=== PATIENT | female | born 1945 | race Caucasian/White ===

== ENCOUNTER 2020-03-05 16:23 | Emergency (ER) | payer MEDICARE, SELFPAY ==
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
[2020-03-05 17:00] VITALS: BP 156/78; PULSE 70; RESP 16; TEMP 36.7; O2SAT 96; BMI 23.3
--- NOTE | 2020-03-05 19:38 | PC.NURSE ---
Security at bedside for changeover. Pt refusing to change into a hospital gown, pt also refusing labs/UA. Pt states I'm going, I'm not staying here! MD aware that pt is attempting to leave. Per MD to call family for more information.
[2020-03-05 19:40] VITALS: BP 169/52; PULSE 70; RESP 18; TEMP 36.4; O2SAT 92
--- NOTE | 2020-03-05 19:42 | PC.NURSE ---
Pt agreeable to this RN contacting her close friend Cathi to obtain more information about current medical condition. Cathi [phone] not answering phone at this time.
--- NOTE | 2020-03-05 19:47 | PC.NURSE ---
This RN attempting to call brother Josh per pt request [phone]. Josh also not answering phone. This RN left a message.
--- NOTE | 2020-03-05 20:52 | PC.NURSE ---
This RN explaining the plan of care to pt and plan for [facility] consult. Pt agreeable to labs, urine and Covid swab at this time. Pt ambulating to the bathroom with a steady gait. All labs obtained and sent. Continue to monitor.
[2020-03-05 20:53] LABS: MANUAL DIFF FLAG NO
[2020-03-05 20:54] LABS: Basophils Absolute Auto 0.1 X10*3/uL (0.0-0.2); Basophils Percent Auto 0.9 % (0-2); Eosinophils Absolute Auto 0.2 X10*3/uL (0.0-0.4); Eosinophils Percent Auto 1.9 % (0-4); Hematocrit 35.4 % (37-47); Hemoglobin 11.5 g/dl (12.0-16.0); Imm Gran Abs Auto 0.05 X10*3/uL (0.00-0.03); Imm Gran Pct Auto 0.6 % (0.0-0.4); Lymphocytes Absolute Auto 2.1 X10*3/uL (1.2-4.9); Lymphocytes Percent Auto 25.5 % (20-40); Mean Corpuscular HGB Conc 32.5 g/dl (31.0-35.0); Mean Corpuscular Hemoglobin 29.6 pg (27.0-33.0); Mean Platelet Volume 8.5 fL (9.4-12.3); Monocytes Absolute Auto 0.7 X10*3/uL (0.1-1.2); Monocytes Percent Auto 8.2 % (2-11); Neutrophils Absolute Auto 5.1 X10*3/uL (2.0-8.3); Neutrophils Percent Auto 62.9 % (45-73); Platelet Count 296 X10*3/uL (160-400); Red Blood Count 3.89 X10*6/uL (4.20-5.50); Red Cell Distribution Width 14.9 % (11.0-16.0); White Blood Count 8.1 X10*3/uL (4.8-10.8)
[2020-03-05 20:55] LABS: Appearance Urine CLEAR; Color Urine YELLOW; Glucose Urine UA NEG (NEG); Leukocyte Esterase Urine 1+ (NEG); Nitrite Urine NEG (NEG); PH 5.5 (5.0-8.0); Specific Gravity - Urine >= 1.030 (1.005-1.025); Urine Blood 2+ (NEG); Urine Ketones NEG (NEG); Urine Protein 1+ MG/DL (NEG-TRACE)
--- NOTE | 2020-03-05 21:00 | PC.NURSE ---
This RN speaking with carli, . Per niece, pt recently discharged from [facility] last Tuesday for a chronic UTI since the summer requiring IV ABX. Per niece, pt has been increasingly paranoid for 3 weeks. Pt is also undergoing changes to her psychiatric medication and has been having weekly visits with her psychiatrist. Carli explains that pts home medications are in a lock box and that she has a visiting nurse coming 2x/day to administer her medications. Plan per niece has been to begin Zyprexa and decrease Seroquel dose. MD reaves.
[2020-03-05 21:01] LABS: Bacteria Urine 1+ /LPF; Squamous Epithelial Cell Urine 1+ /LPF
[2020-03-05 21:21] VITALS: BP 179/65; PULSE 68; RESP 16; TEMP 37; O2SAT 99
[2020-03-05 21:23] LABS: Alanine Aminotransferase 17 U/L (0-31); Albumin Level 3.7 g/dL (3.5-5.0); Alkaline Phosphatase 85 U/L (39-117); Anion Gap 13 (12-20); Aspartate Amino Transferase 18 U/L (5-31); Bilirubin Total 0.3 mg/dL (0.0-1.0); Blood Urea Nitrogen 18 mg/dL (9-16); Carbon Dioxide 26 mmol/L (22-29); Chloride 104 mmol/L (96-108); Creatinine Clr Calc Pharmacy 39.2; Estimated Glomerular Filt Rate 46; Glucose Random 251 mg/dL (60-115); Potassium 4.6 mmol/l (3.3-5.1); Sodium 138 mmol/L (135-145); Total Protein 6.9 g/dL (6.5-8.0)
--- NOTE | 2020-03-05 21:30 | PC.NURSE ---
Addendum entered by Fausto Watts RN 03/05/20 23:51: Contacted with visiting nurse to verify current medication list. Med rec completed, and MD made aware. Pt is diabetic. POC 167. Pt changed over to hospital attire w/o difficulty. Faxed and called to [facility]. Awaiting for N primary consult. At this time, pt is sleeping well in her room. Calm and cooperative. NAD. Will continue to monitor. Original Note: Pt ambulated to POD with security. Steady gait on feet. Called Pt's Niece, Elizabeth to get medication.
--- NOTE | 2020-03-05 21:49 | PC.NURSE ---
Report given to NAPOLEON Lambert. Pt transferred to pod.
[2020-03-05 23:04] LABS: Glucose, Whole Blood 167 mg/dL (60-115)
[2020-03-05 23:17] VITALS: BP 171/59; PULSE 61; RESP 18; TEMP 36.4; O2SAT 93
[2020-03-05] MEDS: OLANZapine 5 MG TABLET PO (23:19)
[2020-03-05] MEDS: Gabapentin 400 MG CAPSULE PO (23:19)
[2020-03-05] MEDS: Mirtazapine 15 MG TABLET 45 MG PO (23:19)
[2020-03-05] MEDS: lamoTRIgine 100 MG TABLET 200 MG PO (23:19)
[2020-03-05] MEDS: QUEtiapine Fumarate 400 MG TABLET PO (23:19)
[2020-03-06] VITALS (7 sets, daily range): BP systolic 138–196; BP diastolic 44–100; PULSE 55–88; RESP 16–18; TEMP 36.1–36.7; O2SAT 95–97
--- NOTE | 2020-03-06 00:04 | PC.NURSE ---
Jose Joseph can be reached at [phone].
[2020-03-06 00:15] LABS: SARS COV2 PCR INHOUSE NEGATIVE (Negative)
--- NOTE | 2020-03-06 07:15 | PC.NURSE ---
RECEIVED REPORT FROM NAPOLEON GUILLEN. PT ALERT AND VERBAL. SKIN WPD. RESPIRATIONS EVEN AND NON LABORED. CALM AND COOPERATIVE. SITTING UP AT DESK, EATING BREAKFAST.
[2020-03-06 07:20] LABS: Glucose, Whole Blood 121 mg/dL (60-115)
[2020-03-06 07:35] LABS: Glucose, Whole Blood 121 mg/dL (60-115)
[2020-03-06] MEDS: Insulin Glargine,Hum.rec.anlog 100 UNIT/ML 10 ML VIAL 20 UNIT SUBCUT (09:27)
[2020-03-06] MEDS: Losartan Potassium 50 MG TABLET PO (09:28)
[2020-03-06] MEDS: amLODIPine Besylate 5 MG TABLET PO (09:28)
[2020-03-06] MEDS: lamoTRIgine 100 MG TABLET 200 MG PO ×2 (09:28→21:31)
[2020-03-06] MEDS: QUEtiapine Fumarate 50 MG TABLET PO (09:29)
[2020-03-06] MEDS: Aspirin Enteric Coated 81 MG TABLET.DR PO (09:29)
[2020-03-06] MEDS: Atorvastatin Calcium 10 MG TABLET PO (09:29)
[2020-03-06] MEDS: Gabapentin 400 MG CAPSULE PO ×2 (09:29→21:31)
[2020-03-06 14:22] LABS: Glucose, Whole Blood 218 mg/dL (60-115)
[2020-03-06] MEDS: Insulin Lispro 100 UNIT/ML 3 ML VIAL SUBCUT ×2 (14:33→21:42)
--- NOTE | 2020-03-06 15:54 | PC.NURSE ---
Report from Judi BENDER. Pt resting quietly at this time in bed, resp reg and even. In patient bedsearch at [facility] time.
--- NOTE | 2020-03-06 18:28 | PC.NURSE ---
Pt requesting her clothes, trying door handles, does not seem to comprehend the concept of bedsearch. This RN explained to pt she is at least here in the ED for tongight and will likely be re-evaluated in the morning. Pt seeming to accept this at this time. Currently sitting in chair in the [place]
--- NOTE | 2020-03-06 19:32 | XR_ITS ---
EXAMINATION: XR CHEST CLINICAL INFORMATION: Medical clearance COMPARISON: None TECHNIQUE: 2 views of the chest were obtained. FINDINGS: Linear scarring or linear atelectasis at the right lung base. There is no acute infiltrate. No pulmonary vascular congestion. There is no pleural effusion. The heart size is normal. The cardiac and mediastinal contours are normal. There are calcifications of the thoracic aorta. There are multilevel degenerative changes of dorsal spine. IMPRESSION: No acute abnormality of the chest.
--- NOTE | 2020-03-06 19:32 | ECG_ITS ---
Test Reason : PRE ADMIT Blood Pressure : / mmHG Vent. Rate : 060 BPM Atrial Rate : 060 BPM P-R Int : 196 ms QRS Dur : 096 ms QT Int : 438 ms P-R-T Axes : 065 061 068 degrees QTc Int : 438 ms Normal sinus rhythm Minimal voltage criteria for LVH, may be normal variant Borderline ECG No previous ECGs available Referred By: Constantino Finnegan Electronically Signed By:MARIYA DAVIS MD
--- NOTE | 2020-03-06 19:47 | PC.NURSE ---
N called notified [facility] is considering patient's admission required Chest X-ray, EKG, and Covid test done. Provider notified.
--- NOTE | 2020-03-06 19:59 | PC.NURSE ---
Patient refused chest X-ray but agreed after educating the importance of the X-ray. Patient in milieu watching TV. Will continue to monitor.
[2020-03-06 21:30] LABS: Glucose, Whole Blood 215 mg/dL (60-115)
[2020-03-06] MEDS: Mirtazapine 15 MG TABLET 45 MG PO (21:30)
[2020-03-06] MEDS: QUEtiapine Fumarate 400 MG TABLET PO (21:31)
[2020-03-06] MEDS: OLANZapine 5 MG TABLET PO (21:31)
--- NOTE | 2020-03-06 21:45 | PC.NURSE ---
Patient compliant with HS po medication. POC was 215 covered with 4 units of insulin as ordered. Will continue to monitor.
[2020-03-07] VITALS (7 sets, daily range): BP systolic 112–170; BP diastolic 49–62; PULSE 63–67; RESP 16–22; TEMP 36.4–36.6; O2SAT 93–97
--- NOTE | 2020-03-07 02:00 | PC.NURSE ---
Patient just went to bed, now appears sleeping, no distress observed/reported. Refused her EKG despite repeated attempt to educate and redirect but to no success. Updated referral handed over to [facility] clinician Quentin to give to Fabiana, who is doing bed search for the patient.
--- NOTE | 2020-03-07 05:59 | PC.NURSE ---
Patient in bed appears sleeping, no distress observed/reported, respiration +/=/non-labored bilaterally. Will continue to monitor.
[2020-03-07 06:47] LABS: Glucose, Whole Blood 121 mg/dL (60-115)
--- NOTE | 2020-03-07 07:21 | PC.NURSE ---
Report received from NAPOLEON Lizama. Pt resting, resp unlabored.
[2020-03-07 08:55] LABS: Glucose, Whole Blood 100 mg/dL (60-115)
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
[2020-03-07] MEDS: Haloperidol Lactate 5 MG/ML VIAL 2.5 MG IM (09:39)
--- NOTE | 2020-03-07 11:03 | PC.NURSE ---
attempted to give report to Wing- unable to receive at this time
--- NOTE | 2020-03-07 11:32 | PC.NURSE ---
Pt sitting in room, rocking on bed. declined vital signs.
[2020-03-07] MEDS: QUEtiapine Fumarate 50 MG TABLET PO (12:25)
--- NOTE | 2020-03-07 12:48 | PC.NURSE ---
Report given to Zachary BENDER at [facility]
--- NOTE | 2020-03-07 13:23 | PC.NURSE ---
Pt initially declining to leave w/ EMS butr then accepted- pt transferred to care of EMS, no concerns reported, no agitation. Resp unlabored, affect variable. Pt drank her milk, and yair radha, but declined lunch.
== END 2020-03-07 13:31 ==
PROVIDERS: Emergency Provider Internal Medicine
DX: F03.90 Unspecified dementia, unspecified severity, without behavioral disturbance, psychotic disturbance, mood disturbance, and anxiety (principal); I10 Essential (primary) hypertension; F17.200 Nicotine dependence, unspecified, uncomplicated; Z71.6 Tobacco abuse counseling; Z20.828 Contact with and (suspected) exposure to other viral communicable diseases; Z79.899 Other long term (current) drug therapy
CPT/HCPCS: 36415; 71046; 80053; 81001; 82947; 85025; 87086; 87635; 93005; 99285